=== PATIENT | male | born 1990 | race American Indian/Alaskan Native ===

== ENCOUNTER 2017-10-24 23:42 | Emergency (ER) | payer MEDICAID ==
[2017-10-25 00:05] VITALS: BMI 27.3
[2017-10-25 00:10] VITALS: O2SAT 98
[2017-10-25] MEDS ORDERED: Sodium Chloride 0.9% 1,000 ML IV SCH (01:00)
--- NOTE | 2017-10-25 01:04 | ED PDOC ---
Arrival/HPI - General Historian: Patient - History of Present Illness Symptom Onset: Gradual Symptom Course: Unchanged Quality: Aching Severity Level: 6 Activities at Onset: Rest Context: Home <Jere Ellison - Last Filed: 10/25/17 03:45> <Dwight Seymour - Last Filed: 10/25/17 04:19> - General Chief Complaint: Headache Time Seen by Provider: 10/24/17 23:53 - History of Present Illness Narrative History of Present Illness (Text): 10/25/17 00:52 Patient is a 27 homeless M with history of headaches for the past month. Patient describes his headaches having a dominance on the right side behind his eye and traveling down to this neck. Rates the sharp pain a 10/10 with no associated photophobia, phonophobia, or vomiting. He does however state that he experiences nausea and dizziness with his migraines but denies any change in the past episodes of migraines. Patient admits to not having a place to live or having money to buy food. Denies chest pain, palpitations, shortness of breath, fevers, chills, cough, vomiting ,diarrhea. (Jere Ellison) Past Medical History - Provider Review Nursing Documentation Reviewed: Yes - Psychiatric Hx Substance Use: No <Jere Ellison - Last Filed: 10/25/17 03:45> Family/Social History - Physician Review Nursing Documentation Reviewed: Yes Family/Social History: No Known Family HX Smoking Status: Light Smoker < 10 Cigarettes Daily Hx Alcohol Use: No Hx Substance Use: No Substance used: denies substance use <Jere Ellison - Last Filed: 10/25/17 03:45> Allergies/Home Meds <Jere Ellison - Last Filed: 10/25/17 03:45> <Dwight Seymour - Last Filed: 10/25/17 04:19> Allergies/Adverse Reactions: Allergies laws Allergy (Verified 10/25/17 00:43) ANAPHYLAXIS FISH Allergy (Verified 10/25/17 00:43) ANAPHYLAXIS mayonnaise Allergy (Verified 10/25/17 00:43) ANAPHYLAXIS peas Allergy (Verified 10/25/17 00:43) ANAPHYLAXIS Review of Systems - Physician Review All systems were reviewed & negative as marked: Yes - Review of Systems Constitutional: Normal. absent: Fevers Eyes: Vision Changes. absent: Photophobia ENT: absent: Hearing Changes, Rhinorrhea Respiratory: absent: SOB, Cough Cardiovascular: absent: Chest Pain, Palpitations Gastrointestinal: Nausea. absent: Abdominal Pain, Diarrhea, Vomiting Genitourinary Male: Normal Musculoskeletal: Normal Neurological: Headache, Dizziness Endocrine: Normal Hemo/Lymphatic: Normal Psychiatric: Normal <Jere Ellison - Last Filed: 10/25/17 03:45> Physical Exam Vital Signs Reviewed: Yes Temperature: Afebrile Blood Pressure: Normal Pulse: Regular Respiratory Rate: Normal Appearance: Positive for: Well-Appearing, Non-Toxic, Comfortable Pain Distress: None Mental Status: Positive for: Alert and Oriented X 3 - Systems Exam Head: Present: Atraumatic, Normocephalic Pupils: Present: PERRL Extroacular Muscles: Present: EOMI Conjunctiva: Present: Normal Mouth: Present: Moist Mucous Membranes Neck: Present: Normal Range of Motion Respiratory/Chest: Present: Clear to Auscultation. No: Wheezes, Rhonchi Cardiovascular: Present: Regular Rate and Rhythm, Normal S1, S2. No: Murmurs Abdomen: Present: Normal Bowel Sounds. No: Tenderness Upper Extremity: Present: Normal Inspection. No: Edema Lower Extremity: Present: Normal Inspection. No: Edema Neurological: Present: GCS=15, CN II-XII Intact, Speech Normal Skin: Present: Warm, Dry, Normal Color Psychiatric: Present: Alert, Oriented x 3, Normal Insight, Normal Concentration <Jere Ellison - Last Filed: 10/25/17 03:45> Vital Signs Temp Pulse Resp BP Pulse Ox 10/25/17 00:55 109/68 10/25/17 00:06 98.1 F 72 16 98 Medical Decision Making Re-evaluation Time: 03:45 Reassessment Condition: Re-examined, Improved - Lab Interpretations I have reviewed the lab results: Yes Interpretation: All labs normal - EKG Interpretation Interpreted by ED Physician: Yes Type: 12 lead EKG <Jere Ellison - Last Filed: 10/25/17 03:45> - Lab Interpretations I have reviewed the lab results: Yes <Dwight Seymour - Last Filed: 10/25/17 04:19> ED Course and Treatment: 10/25/17 01:07 Migraine vs. Malingering CBC, BMP, Urine drug tox, CT head w/o contrast, EKG Benadryl, Toradol, Reglan -Previous admissions to different hospitals including: [facility], [place], [facility] reveal patient going to ED for similar reasons will full work up being done and final diagnosis being headache with no abnormalities in lab results or CT head/cervical spine. Will discharge patient without prescriptions considering patient has several prescriptions for his migraine headaches which he has yet to fill and take. (Jere Ellison) Patient Seen With Resident: In agreement with resident note, which includes further HPI details. Patient was seen and evaluated with resident, came up with plan and treatment together. 27 year old homeless male presents complaining of right sided headaches that ratdates from behind his eye down to his neck. Plan: -- labs -- Benadryl, Reglan, IV Fluids, Toradol -- Fingerstick 10/25/17 04:16 Patient is AAOx3. He no longer has symptoms. He's had multiple workups at [facility], [facility] and [place] for similar symptoms with negative CT head/cervical spine. CT head cancelled. No indication for imaging at this time. After observation in the ED it also appeared he felt better after some rest and food. He will be discharged with clinic f/u. (Dwight Seymour) - Lab Interpretations Lab Results: 10/25/17 01:00 10/25/17 01:00 Lab Results 10/25/17 01:00: Sodium 142, Potassium 3.9, Chloride 103, Carbon Dioxide 29, Anion Gap 14, BUN 10, Creatinine 1.0, Est GFR ( Amer) > 60, Est GFR (Non- Af Amer) > 60, Random Glucose 70, Calcium 8.9 10/25/17 01:00: WBC 4.0 L, RBC 3.86, Hgb 12.5 L, Hct 37.2 L, MCV 96.4, MCH 32.4 , MCHC 33.6, RDW 12.2, Plt Count 232, MPV 9.5, Gran % 37.4 L, Lymph % (Auto) 46.6 H, Beaver % (Auto) 12.9 H, Eos % (Auto) 2.8, Baso % (Auto) 0.3, Gran # 1.48, Lymph # (Auto) 1.8, Beaver # (Auto) 0.5, Eos # (Auto) 0.1, Baso # (Auto) 0.01 - Medication Orders Current Medication Orders: Sodium Chloride (Sodium Chloride 0.9%) 1,000 mls @ 100 mls/hr IV .Q10H KIMBERLY Last Admin: 10/25/17 01:18 Dose: 100 mls/hr eMAR Start Stop Document 10/25/17 01:18 MS (Rec: 10/25/17 01:18 MS [id number]) Intravenous Solution Start Date 10/25/17 Start Time 01:18 Discontinued Medications Diphenhydramine HCl (Benadryl) 50 mg PO STAT STA Stop: 10/25/17 00:49 Last Admin: 10/25/17 01:11 Dose: 50 mg Ketorolac Tromethamine (Toradol) 30 mg IVP STAT STA Stop: 10/25/17 00:49 Last Admin: 10/25/17 01:17 Dose: 30 mg MAR Pain Assessment Document 10/25/17 01:17 MS (Rec: 10/25/17 01:18 MS [id number]) Pain Reassessment Is this a pain reassessment? No Sleep Is patient sleeping during reassessment? No Presence of Pain Presence of Pain Yes Pain Scale Used Pain Scale Used Numeric Location Pain Location Body Hogshead Opener Description Description Constant Intensity of Pain at present 8 Pain Behavior Moaning Guarding IVP Administration Document 10/25/17 01:17 MS (Rec: 10/25/17 01:18 MS [id number]) Charges for Administration # of IVP Administrations 1 Metoclopramide HCl (Reglan) 10 mg IVP STAT STA Stop: 10/25/17 00:49 Last Admin: 10/25/17 01:12 Dose: 10 mg IVP Administration Document 10/25/17 01:12 MS (Rec: 10/25/17 01:17 MS [id number]) Charges for Administration # of IVP Administrations 1 <Jere Ellison - Last Filed: 10/25/17 03:45> - Scribe Statement The provider has reviewed the documentation as recorded by the Scribe <Dwight Seymour - Last Filed: 10/25/17 04:19> - Scribe Statement [place] Provider Scribe Attestation: All medical record entries made by the Scribe were at my direction and personally dictated by me. I have reviewed the chart and agree that the record accurately reflects my personal performance of the history, physical exam, medical decision making, and the department course for this patient. I have also personally directed, reviewed, and agree with the discharge instructions and disposition. (Dwight Seymour) Disposition/Present on Arrival - Present on Arrival Any Indicators Present on Arrival: No History of DVT/PE: No History of Uncontrolled Diabetes: No Urinary Catheter: No History of Decub. Ulcer: No History Surgical Site Infection Following: None - Disposition Have Diagnosis and Disposition been Completed?: Yes Disposition Time: 03:43 Patient Plan: Discharge <Jere Ellison - Last Filed: 10/25/17 03:45> <Dwight Seymour - Last Filed: 10/25/17 04:19> - Disposition Diagnosis: Migraine Disposition: HOME/ ROUTINE Patient Problems: Current Active Problems Problem Status Onset Migraine Acute Condition: GOOD Discharge Instructions (ExitCare): Migraine Headache (DC) Additional Instructions: Kenney , thank you for letting us take care of you today. Your provider was Dr. Seymour. You were treated for your headache. The emergency medical care you received today was directed at your acute symptoms. If you were prescribed any medication, please fill it and take as directed. It may take several days for your symptoms to resolve. Return to the Emergency Department if your symptoms worsen, do not improve, or if you have any other problems. Please contact your doctor or call one of the physicians/clinics you have been referred to that are listed on the Patient Visit Information form that is included in your discharge packet. Bring any paperwork you were given at discharge with you along with any medications you are taking to your follow up visit. Our treatment cannot replace ongoing medical care by a primary care provider (PCP) outside of the emergency department. Thank you for allowing the [facility] team to be part of your care today. If you had an X-Ray or CT scan: A Radiologist will review the ED reading if any change in treatment is needed we will contact you. If you had a blood, urine, or wound culture: It will take several days for the results, if any change in treatment is needed we will contact you. If you had an STI test: It will take 48 hours for the results. Please call after 1 week if you have not heard back. Referrals: [facility] [Provider Group] - Follow up with primary Forms: [employer] (Bulgarian)
[2017-10-25 01:10] LABS: BASO # 0.01 K/mm3 (0.0-2.0); BASO % 0.3 % (0.0-3.0); EOS # 0.1 (0.0-0.7); EOS % 2.8 % (1.5-5.0); GRAN # 1.48 (1.4-6.5); GRAN % 37.4 % (50.0-68.0); HEMOGLOBIN 12.5 g/dL (14.0-18.0); LYMPH # 1.8 (1.2-3.4); LYMPH % 46.6 % (22.0-35.0); MEAN CELL VOLUME 96.4 fl (80.0-105.0); MEAN CORPUSCULAR HEMOGLOBIN 32.4 pg (25.0-35.0); MEAN CORPUSCULAR HGB CONC 33.6 g/dl (31.0-37.0); MEAN PLATELET VOLUME 9.5 fl (7.0-11.0); MONO # 0.5 (0.1-0.6); MONO % 12.9 % (1.0-6.0); RBC 3.86 10^6/uL (3.5-6.1); RED CELL DISTRIBUTION WIDTH 12.2 % (11.5-14.5)
[2017-10-25 01:15] LABS: BLOOD UREA NITROGEN 10 mg/dL (7-21); CALCIUM 8.9 mg/dL (8.4-10.5); GFR AFRICAN-AMERICAN > 60; GFR NON-AFRICAN AMERICAN > 60
[2017-10-25 04:25] VITALS: BP 130/76; PULSE 78; RESP 18; TEMP 97.6
== END 2017-10-25 03:50 | disposition home or self-care (01) ==
LOC: ED 23:42 → MERGE 23:42 → ED 10-25 03:50
DX: G43.909 Migraine, unspecified, not intractable, without status migrainosus (principal); F17.210 Nicotine dependence, cigarettes, uncomplicated
CPT/HCPCS: 80048; 85025; 96374; 96375; 99285; J1885; J2765; J7030

== ENCOUNTER 2018-01-28 03:20 | Emergency (ER) | payer MEDICAID ==
[2018-01-28 03:36] VITALS: BMI 21.2
[2018-01-28 03:38] VITALS: PULSE 83; TEMP 97.6
--- NOTE | 2018-01-28 05:10 | ED PDOC ---
Arrival/HPI - General Historian: Patient EM Caveat: Uncooperative - General Chief Complaint: Headache Time Seen by Provider: 01/28/18 03:36 - History of Present Illness Narrative History of Present Illness (Text): 01/28/18 05:08 27 year old male presents to the ED stating that he is having a headache. Patient is refusing to answer any questions at this time. HPI and ROS limited due to patient not cooperative. (Jesus Sharpe) Past Medical History - Provider Review Nursing Documentation Reviewed: Yes - Travel History Have you recently traveled outside [place] w/in the past 3 mons?: No - Neurological Hx Headaches: Yes Hx Migraine: Yes - Psychiatric Hx Anxiety: Yes Hx Bipolar Disorder: Yes Hx Depression: Yes Hx Substance Use: Yes - Anesthesia Hx Anesthesia: No Family/Social History - Physician Review Nursing Documentation Reviewed: Yes Family/Social History: No Known Family HX Smoking Status: Heavy Smoker > 10 Cigarettes Daily Hx Alcohol Use: Yes Hx Substance Use: Yes Substance used: Marijuana Allergies/Home Meds Allergies/Adverse Reactions: Allergies laws Allergy (Verified 01/28/18 03:33) ANAPHYLAXIS FISH Allergy (Verified 01/28/18 03:33) ANAPHYLAXIS mayonnaise Allergy (Verified 01/28/18 03:33) ANAPHYLAXIS peas Allergy (Verified 01/28/18 03:33) ANAPHYLAXIS Home Medications: Home Meds Medication Instructions Recorded Confirmed DiphenhydrAMINE [Benadryl] 50 mg PO Q6 PRN 01/28/18 01/28/18 Risperidone [Risperdal] 3 mg PO BID 01/28/18 01/28/18 Review of Systems - Review of Systems Systems not reviewed;Unavailable: Uncooperative Physical Exam - Physical Exam Physical Exam Limitations: Uncooperative Vital Signs Reviewed: Yes Temperature: Afebrile Blood Pressure: Hypotensive Pulse: Regular Respiratory Rate: Normal Appearance: No: Non-Toxic (intoxicated) Pain Distress: None Mental Status: Positive for: other (sleeping) - Systems Exam Head: Present: Other (Patient is refusing physical examination) Vital Signs Temp Pulse Resp BP Pulse Ox 01/28/18 03:36 97.6 F 83 19 95/60 L 98 Medical Decision Making Reassessment Condition: Re-examined, Unchanged ED Course and Treatment: 01/28/18 05:22 Impression: Patient is a 27 year old male complaining of headache. Differential Diagnosis included but are not limited to: - Headache Plan: -- Reassure patient Progress Notes: 01/28/18 04:23 - Patient is refusing to answer any questions. Sleeping comfortably. Patient not cooperative. 01/28/18 05:24 - Patient is still refusing any questions. 01/28/18 05:40 - Patient stable for discharge. 01/28/18 05:44 (Jesus Sharpe) Disposition/Present on Arrival - Present on Arrival Any Indicators Present on Arrival: No History of DVT/PE: No History of Uncontrolled Diabetes: No Urinary Catheter: No History of Decub. Ulcer: No History Surgical Site Infection Following: None - Disposition Have Diagnosis and Disposition been Completed?: Yes Disposition Time: 05:40 Patient Plan: Discharge - Disposition Diagnosis: Headache Disposition: HOME/ ROUTINE Patient Problems: Current Active Problems Problem Status Onset Headache Acute Condition: IMPROVED Additional Instructions: JOHANN BURLESON, thank you for letting us take care of you today. Your provider was Roxie Allen MD and you were treated for HEADACHE. The emergency medical care you received today was directed at your acute symptoms. If you were prescribed any medication, please fill it and take as directed. It may take several days for your symptoms to resolve. Return to the Emergency Department if your symptoms worsen, do not improve, or if you have any other problems. Please contact your doctor or call one of the physicians/clinics you have been referred to that are listed on the Patient Visit Information form that is included in your discharge packet. Bring any paperwork you were given at discharge with you along with any medications you are taking to your follow up visit. Our treatment cannot replace ongoing medical care by a primary care provider outside of the emergency department. Thank you for allowing the [email or web address] team to be part of your care today. If you had an X-Ray or CT scan: A Radiologist will review the ED reading if any change in treatment is needed we will contact you. If you had a blood, urine, or wound culture: It will take several days for the results, if any change in treatment is needed we will contact you. If you had an STI test: It will take 48 hours for the results. Please call after 1 week if you have not heard back. Referrals: Kelly Cervantes [Primary Care Provider] - Follow up with primary Forms: [employer] (Arabic)
[2018-01-28 06:14] VITALS: BP 103/72; RESP 18; O2SAT 100
== END 2018-01-28 05:43 | disposition home or self-care (01) ==
LOC: ED 03:20
DX: R51 Headache (principal); F17.210 Nicotine dependence, cigarettes, uncomplicated